=== PATIENT | female | born 1990 | race Two or more races ===

== ENCOUNTER 2018-03-30 16:57 | Emergency (ER) | payer SELFPAY ==
[~2018-03-30] VITALS: Ht 160 cm; Wt 62.6 kg
[2018-03-30 17:35] VITALS: BP 166/81
[2018-03-30] MEDS: IBUPROFEN 400 MG TABLET. PO ONE (18:07)
--- NOTE | 2018-03-30 18:17 | PHYS DOC ---
Past Medical History Past Medical History: Asthma, Depression Past Surgical History: No Surgical History Alcohol Use: None Drug Use: None Adult General Chief Complaint Chief Complaint: ANKLE PROBLEM HPI HPI 27-year-old female presents with her family for evaluation of injuries sustained when she slipped and fell down approximately 10 steps this afternoon. She did not hit her head or pass out. She has complaints of pain to the left foot and left ankle as well as the right knee. She denies other injuries. Has trouble bearing weight on the left foot. Review of Systems Review of Systems Constitutional: Denies fever or chills [] Eyes: Denies change in visual acuity, redness, or eye pain [] HENT: Denies nasal congestion or sore throat [] Respiratory: Denies cough or shortness of breath [] Cardiovascular: No additional information not addressed in HPI [] GI: Denies abdominal pain, nausea, vomiting, bloody stools or diarrhea [] : Denies dysuria or hematuria [] All other systems were reviewed and found to be within normal limits, except as documented in this note. Current Medications Current Medications Current Medications Medications (Trade) Dose Ordered Sig/Donnie Start Time Stop Time Status Last Admin Dose Admin Ibuprofen (Motrin) 800 mg 1X ONCE 03/30/18 18:00 03/30/18 18:01 DC 03/30/18 18:07 800 MG Allergies Allergies Allergies Coded Allergies Type Severity Reaction Last Updated Verified No Known Drug Allergies 03/30/18 No Physical Exam Physical Exam Constitutional: Well developed, well nourished, no acute distress, non-toxic appearance. [] Eyes: PERRLA, EOMI, conjunctiva normal, no discharge. [] Neck: Normal range of motion, no tenderness, supple, no stridor. [] Skin: Warm, dry, no erythema, no rash. [] Back: No tenderness, no CVA tenderness. [] Extremities: LEFT FOOT TTP DIFFUSELY, LEFT ANKLE MINIMAL EDEMA TO LATERAL ASPECT , PT RELUCTANT TO ROM SECONDARY TO PAIN, + PEDAL PULSES, RT KNEE ANTERIOR TTP, FULL ROM, NO EDEMA Neurologic: Alert and oriented X 3, normal motor function, normal sensory function, no focal deficits noted. [] Psychologic: Affect normal, judgement normal, mood normal. [] Current Patient Data Vital Signs Vital Signs Date Time Temp Pulse Resp B/P (MAP) Pulse Ox O2 Delivery O2 Flow Rate FiO2 03/30/18 17:35 98.2 104 22 166/81 (109) 99 98.2 EKG EKG [] Radiology/Procedures Radiology/Procedures [X-rays of the left foot and left ankle are negative, x-rays of right knee are negative. Patient is placed in Sarath wrap and on crutches for left foot pain. Recommend follow-up with primary care doctor. Neurovascular intact and stable for discharge home.] Course & Med Decision Making Course & Med Decision Making Pertinent Labs and Imaging studies reviewed. (See chart for details) [] Dragon Disclaimer Dragon Disclaimer This electronic medical record was generated, in whole or in part, using a voice recognition dictation system. Departure Departure Impression: Primary Impression: Knee pain Additional Impression: Strain of foot, left Disposition: 01 HOME, SELF-CARE Condition: STABLE Referrals: UNKNOWN PCP NAME (PCP) Patient Instructions: Foot Sprain Scripts Ibuprofen (IBUPROFEN) 400 Mg Tablet 400 MG PO PRN Q6HRS PRN for INFLAMMATION, #20 TAB Prov: CHENTE FARMER APRN 03/30/18 Problem Qualifiers CHENTE FARMER APRN Mar 30, 2018 18:17
[2018-03-30] MEDS ORDERED: IBUP-1027 PO (19:09)
--- NOTE | 2018-03-31 08:28 | RAD ---
FOOT LEFT 3V, ANKLE LEFT 3V Clinical Indication: ER PATIENT. TRAUMA FALL TODAY. PAIN IN THE LEFT FOOT and ankle. Comparison: None. Findings: No acute fracture of the ankle. No significant soft tissue swelling. The mineralization is normal. Bony articulations of the foot are maintained. There is no bone erosion. No acute fracture is identified. No soft tissue swelling. IMPRESSION: No acute fracture. Electronically signed by: Crescencio Bean MD (03/31/2018 8:24 AM) [id number]
--- NOTE | 2018-03-31 08:29 | RAD ---
KNEE 3 VIEWS RIGHT Clinical Indication: ER PATIENT. TRAUMA FALL TODAY. PAIN IN THE RIGHT KNEE. Comparison: None. Findings: There is no acute fracture or dislocation. The tricompartmental joint spaces are maintained. The patella is in anatomic position. There is no soft tissue abnormality. There is no joint effusion. IMPRESSION: No acute fracture. Electronically signed by: Crescencio Bean MD (03/31/2018 8:26 AM) [id number]
== END 2018-03-30 19:20 | disposition home or self-care (01) ==
LOC: ER 16:57
DX: S96.812A Strain of other specified muscles and tendons at ankle and foot level, left foot, initial encounter (principal); M25.561 Pain in right knee; J45.909 Unspecified asthma, uncomplicated; F32.9 Major depressive disorder, single episode, unspecified; W10.8XXA Fall (on) (from) other stairs and steps, initial encounter; Y93.89 Activity, other specified; Y92.89 Other specified places as the place of occurrence of the external cause; Y99.8 Other external cause status
CPT/HCPCS: 73562; 73610; 73630; 99284